=== PATIENT | male | born 1960 | race Caucasian/White ===

== ENCOUNTER 2022-10-15 12:41 | Outpatient (CLI) | payer SELFPAY | END 2022-10-15 12:42 | disposition home or self-care (01) | PROVIDERS: PCP Family Medicine; Visit Provider Family Medicine | DX: Z00.00 Encounter for general adult medical examination without abnormal findings (principal); E11.9 Type 2 diabetes mellitus without complications; E78.5 Hyperlipidemia, unspecified | CPT/HCPCS: 80048; 80061; 84460 ==

== ENCOUNTER 2023-08-01 13:04 | Emergency (ER) | payer OTHER, SELFPAY ==
[2023-08-01] VITALS (15 sets, daily range): BP systolic 139–160; BP diastolic 79–90; PULSE 92–105; RESP 18; TEMP 36.3; O2SAT 92–96; BMI 31.2
--- NOTE | 2023-08-01 13:48 | CT_ITS ---
Final Report Patient: ALLI MONTIEL Facility:?[facility] Patient ID:?[id number] Site Patient ID:?[id number]. Site :?[id number] Study:?CT Head W/O-08/01/2023 2:16:55 PM Ordering Physician:CHARLES Final Report: INDICATION: Fall TECHNIQUE: CT head without contrast. COMPARISON: None. FINDINGS: CSF spaces: Within normal limits for age. Brain parenchyma and extra-axial spaces: The lynch-white differentiation is normal. No sign of mass, hemorrhage, or midline shift. No extra-axial fluid collection. Skull base and calvarium: The visualized paranasal sinuses and mastoid air cells demonstrate no acute or significant findings. The visualized orbits are grossly unremarkable. No skull fractures. IMPRESSION: Unremarkable noncontrast head CT. Dictated by Jeet Fournier MD @ 08/01/2023 2:27:21 PM Please note that all CT scans at this facility use dose modulation, iterative reconstruction, and/or weight-based dosing when appropriate to reduce radiation dose to as low as reasonably achievable. Dictated by: Jeet Fournier MD @ 08/01/2023 14:27:29 (Electronic Signature)
--- NOTE | 2023-08-01 13:49 | ED_ITS ---
HPI - General Adult General Chief complaint: Fall/Minor Trauma Stated complaint: Fell moments ago, weakness, headache Time Seen by Provider: 08/01/23 13:11 History of Present Illness HPI narrative: This 62-year-old male comes in reporting headache and frequent falls. He states that he did fall about 3 weeks ago and hit his head at that time. He did not have loss of consciousness. He fell again yesterday 4 times. You lives alone at home and was able to get up after each fall. He came in today for evaluation here and fell in the parking lot on the way here. He does report some pain in his ribs on the left side. Related Data Previous Rx's Medication Instructions Recorded citalopram 20 mg tablet 20 mg PO QDAY #90 tabs 10/15/22 atorvastatin 20 mg tablet 20 mg PO QDAY #30 tabs 10/16/22 insulin glargine 100 unit/mL (3 10 unit (0.1 mL) subcut QPM #15 mL 12/12/22 mL) subcutaneous pen (Lantus Solostar U-100 Insulin) pen needle, diabetic 30 gauge x #100 ea 12/12/22 5/16 (Pen Needle) glimepiride 4 mg tablet 4 mg PO BID #180 tabs 06/23/23 metformin 500 mg tablet,extended 1,000 mg (2 x 500 mg) PO BID #360 06/23/23 release 24hr (osmotic) tabs Allergies Allergy/AdvReac Type Severity Reaction Status Date / Time bee venom protein (honey bee) Allergy Severe Anaphylaxis Verified 08/01/23 13:17 codeine Allergy Severe Anaphylaxis Verified 08/01/23 13:17 Penicillins Allergy Severe Anaphylaxis Verified 08/01/23 13:17 piroxicam AdvReac Unknown Muscle Pain Verified 08/01/23 13:17 Review of Systems Status of ROS: Reports: 10 or more systems reviewed and unremarkable except as noted in History and below Narrative: Constitutional: No fevers, no weight gain or loss. Eyes: No discharge. No vision changes. HENT: No congestion, no sore throat, no ear pain. Cardiovascular: No chest pain, no palpitations. Respiratory: No shortness of breath, no wheezes, no cough. Gastrointestinal: No abdominal pain, no vomiting, no diarrhea. Genitourinary: No dysuria, no hematuria. Musculoskeletal: Normal range of motion. Skin: No rashes, no pruritis. Neurological: No sensory change, speech change. He does report some sense of movement or mild vertigo at times. Endo/Heme/Allergies: No bruising or bleeding. No polydipsia. Pysch: no suicidality, no anxiety, no insomnia. All other systems reviewed and are negative. [facility] Medical History (Updated 08/01/23 @ 16:13 by Denver Faust MD) Adhesive capsulitis of both shoulders ?M75.01 - Adhesive capsulitis of right shoulder (ICD-10) ?M75.02 - Adhesive capsulitis of left shoulder (ICD-10) Type 2 diabetes mellitus ?E11.9 - Type 2 diabetes mellitus without complications (ICD-10) Major depression, recurrent ?F33.9 - Major depressive disorder, recurrent, unspecified (ICD-10) History of vitamin D deficiency (05/2020) ?Z86.39 - Personal history of other endocrine, nutritional and metabolic disease (ICD-10) Cataracts, bilateral ?H26.9 - Unspecified cataract (ICD-10) Hyperlipidemia ?E78.5 - Hyperlipidemia, unspecified (ICD-10) Hx of medication noncompliance ?Z91.148 - Patient's other noncompliance with medication regimen for other reason (ICD-10) Umbilical hernia ?K42.9 - Umbilical hernia without obstruction or gangrene (ICD-10) Mild intermittent asthma ?J45.20 - Mild intermittent asthma, uncomplicated (ICD-10) Hoarding disorder ?F42.3 - Hoarding disorder (ICD-10) Eczema ?L30.9 - Dermatitis, unspecified (ICD-10) History of adenomatous polyp of colon ?Z86.010 - Personal history of colonic polyps (ICD-10) Surgical History (Updated 10/02/22 @ 14:43 by Emmy Avitia) History of tonsillectomy ?Z90.89 - Acquired absence of other organs (ICD-10) Family History (Updated 10/02/22 @ 14:44 by Emmy Avitia) Mother Depression Diabetes Uncle Alcohol dependence Father Coronary artery disease, Onset Age: 50 Brother Diabetes Social History (Updated 10/02/22 @ 14:46 by Emmy Avitia) Narrative: Single. No children. Unemployed. No EtOH. No illicit drugs. Smoking Status: Never smoker Little interest or pleasure in doing things: nearly every day Feeling down, depressed, or hopeless: not at all Exam Narrative: Exam Narrative: Constitutional: Well-developed, well-nourished, no acute distress. HEENT: Normocephalic, atraumatic. Neck: Normal range of motion. Nontender. Supple. Heart: Regular. No murmurs. Normal rate. Intact distal pulses. Lungs: Clear to auscultation. No chest discomfort. No wheezes, rhonchi, or rales. Abdomen: Normal bowel sounds. Nontender. No rebound tenderness. Genitalia: Deferred. Back: No midline tenderness. Normal range of motion. Extremities: Normal range of motion. No injury. Skin: Intact. No rash. Warm. No erythema or pallor. Neurologic: No altered sensation. No weakness. Alert and oriented. Tongue is midline. No facial asymmetry. Speech is normal. [id number] is normal. No pronator drift. 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 He is able to raise each leg from the bed to my hand. Psychiatric: No suicidality. No anxiety or depression. No insomnia. Nursing notes and vitals signs are reviewed. Const: Vital Signs, click to edit/add: Vital Signs - 24 hr 08/01/23 13:18 08/01/23 13:51 08/01/23 14:02 Temperature 97.3 F L Pulse Rate 97 Pulse Rate [Pulse Oximeter] 105 H Respiratory Rate 18 Blood Pressure Blood Pressure [Ri ght Upper Arm] 154/90 H Pulse Oximetry 96 92 95 Oxygen Delivery Me thod Room Air 08/01/23 14:07 08/01/23 14:15 08/01/23 14:30 Temperature Pulse Rate 97 98 100 Pulse Rate [Pulse Oximeter] Respiratory Rate Blood Pressure Blood Pressure [Ri ght Upper Arm] Pulse Oximetry 95 94 95 Oxygen Delivery Me thod 08/01/23 14:31 08/01/23 14:45 08/01/23 15:00 Temperature Pulse Rate 98 102 H 96 Pulse Rate [Pulse Oximeter] Respiratory Rate Blood Pressure 160/89 H Blood Pressure [Ri ght Upper Arm] Pulse Oximetry 94 95 94 Oxygen Delivery Me thod 08/01/23 15:02 08/01/23 15:15 08/01/23 15:30 Temperature Pulse Rate 97 95 92 Pulse Rate [Pulse Oximeter] Respiratory Rate Blood Pressure 143/79 H Blood Pressure [Ri ght Upper Arm] Pulse Oximetry 94 94 95 Oxygen Delivery Me thod 08/01/23 15:31 08/01/23 15:32 08/01/23 15:45 Temperature Pulse Rate 93 92 98 Pulse Rate [Pulse Oximeter] Respiratory Rate Blood Pressure 139/84 Blood Pressure [Ri ght Upper Arm] Pulse Oximetry 95 95 96 Oxygen Delivery Me thod Course Vital Signs Vital signs: Initial Vital Signs Temperature 97.3 F L 08/01/23 13:18 Temperature Source Temporal Artery Scan 08/01/23 13:18 Pulse Rate 105 H 08/01/23 13:18 Respiratory Rate 18 08/01/23 13:18 Blood Pressure 154/90 H 08/01/23 13:18 Blood Pressure Mean 111 H 08/01/23 13:18 Blood Pressure Position Semi-Fowlers 08/01/23 13:18 Pulse Oximetry 96 08/01/23 13:18 Oxygen Delivery Method Room Air 08/01/23 13:18 Vital Signs Temperature 97.3 F L 08/01/23 13:18 Pulse Rate 105 H 08/01/23 13:18 Respiratory Rate 18 08/01/23 13:18 Blood Pressure 154/90 H 08/01/23 13:18 Pulse Oximetry 96 08/01/23 13:18 Oxygen Delivery Method Room Air 08/01/23 13:18 Temperature 97.3 F L 08/01/23 13:18 Pulse Rate 98 08/01/23 15:45 Respiratory Rate 18 08/01/23 13:18 Blood Pressure 139/84 08/01/23 15:31 Pulse Oximetry 96 08/01/23 15:45 Oxygen Delivery Method Room Air 08/01/23 13:18 Medical Decision Making MDM Narrative Medical decision making narrative: This patient comes in noting several falls over the past couple days. His neurologic exam is completely normal. She is not showing any sign of unilateral weakness. A CT scan of the head is obtained and by my review shows no acute findings. Radiology over read is pending yet. MRI may be helpful but is not available on this weekend day. The patient will was able to get up to the bathroom and ambulated normally to and fro but he seemed to be a bit more clumsy when doing so. He is okay to be discharged home. I advised him to follow-up with his primary physician and neurology clinic. If symptoms are persistent he may benefit from a diagnostic results of an MRI. Lab Data Labs: Lab Results 08/01/23 Range/Units 13:55 WBC 6.04 (4.50-11.00) K/uL RBC 5.53 (4.30-5.90) m/uL Hgb 16.6 (13.5-17.5) gm/dL Hct 46.7 (37.0-53.0) % MCV 84 (80-100) fL MCH 30 (26-34) pg MCHC 36 (32-36) gm/dL RDW Coeff of Bassem 13.6 (11.5-15.5) % Plt Count 172 (140-440) K/uL Neut % (Auto) 53.6 (42.0-72.0) % Lymph % (Auto) 35.1 (20-44) % Metcalfe % (Auto) 5.5 (0.0-11.0) % Eos % (Auto) 4.8 (0.0-7.0) % Baso % (Auto) 0.7 (0.0-3.0) % Neut # (Auto) 3.24 (1.7-7.0) K/uL Lymph # (Auto) 2.12 (0.90-2.90) K/uL Metcalfe # (Auto) 0.30 (0.00-0.90) K/UL Eos # (Auto) 0.29 (0.00-0.50) K/uL Baso # (Auto) 0.04 (0.00-0.30) K/uL Abs Immat Gran (auto) 0.02 (0.00-0.30) K/uL Imm/Tot Granulo (auto) 0.3 % Sodium 135 (135-149) mmol/L Potassium 3.8 (3.6-5.1) mmol/L Chloride 100 (96-114) mmol/L Carbon Dioxide 21 (20-32) mmol/L Anion Gap 14 (7-15) mEq/L BUN 16 (7-30) mg/dL Creatinine 0.8 (0.5-1.5) mg/dL Estimated Creat Clear 81.91 Estimated GFR 99 ml/min Glucose 365 H* (60-115) mg/dL Calcium 9.9 (8.4-10.6) mg/dL ECG Data Attestation: I personally reviewed and interpreted this ECG as follows: Interpretation: Borderline tachycardia, rate 102 beats per minute. There are no specific ST or T-wave abnormalities. Discharge Plan Discharge Clinical Impression: Ataxia Patient Disposition: Home, Self-Care Condition: Unchanged Additional Instructions: Use walker for ambulating. Follow-up with primary physician and Neurology Clinic. Return if symptoms are recurrent or worsening. Prescriptions: No Action citalopram 20 mg tablet 20 mg PO QDAY Qty: 90 3RF (DME) pen needle, diabetic [Pen Needle] 30 gauge x 5/16 needle See Rx Instructions .ROUTE .MEDSUPPLY Qty: 100 3RF Rx Instructions: Injects daily insulin glargine [Lantus Solostar U-100 Insulin] 100 unit/mL (3 mL) insulin pen 10 unit subcut QPM Qty: 15 1RF atorvastatin 20 mg tablet 20 mg PO QDAY Qty: 30 3RF metformin 500 mg tablet extended release 24 hr 1,000 mg PO BID Qty: 360 0RF glimepiride 4 mg tablet 4 mg PO BID Qty: 180 0RF Follow Up/Referrals: Viraj Garza MD [Primary Care Provider] - Stand Alone Forms: [employer] Info Instructions
[2023-08-01 14:03] LABS: Basophils Absolute Auto 0.04 K/uL (0.00-0.30); Basophils Percent Auto 0.7 % (0.0-3.0); Eosinophils Absolute Auto 0.29 K/uL (0.00-0.50); Eosinophils Percent Auto 4.8 % (0.0-7.0); Hematocrit 46.7 % (37.0-53.0); Hemoglobin* 16.6 gm/dL (13.5-17.5); Immature Granulocytes Abs Auto 0.02 K/uL (0.00-0.30); Immature Granulocytes Pct Auto 0.3 %; Lymphocytes Absolute Auto 2.12 K/uL (0.90-2.90); Lymphocytes Percent Auto 35.1 % (20-44); Mean Corpuscular HGB Conc 36 gm/dL (32-36); Mean Corpuscular Hemoglobin 30 pg (26-34); Mean Corpuscular Volume 84 fL (80-100); Monocytes Percent Auto 5.5 % (0.0-11.0); Neutrophils Absolute Auto 3.24 K/uL (1.7-7.0); Neutrophils Percent Auto 53.6 % (42.0-72.0); Platelet Count* 172 K/uL (140-440); RDW Coefficient of Variation % 13.6 % (11.5-15.5); Red Blood Count 5.53 m/uL (4.30-5.90); White Blood Count* 6.04 K/uL (4.50-11.00)
[2023-08-01 14:10] LABS: Slide Review Reflex No
[2023-08-01 14:17] LABS: Chloride* 100 mmol/L (96-114); Potassium* 3.8 mmol/L (3.6-5.1); Sodium* 135 mmol/L (135-149)
[2023-08-01 14:20] LABS: Anion Gap 14 mEq/L (7-15); Blood Urea Nitrogen* 16 mg/dL (7-30); Carbon Dioxide* 21 mmol/L (20-32); Creatinine* 0.8 mg/dL (0.5-1.5); Est. Creatinine Clearance* 81.91; Estimated Glomerular Filt Rate 99 ml/min
[2023-08-01 14:21] LABS: Calcium* 9.9 mg/dL (8.4-10.6)
[2023-08-01 14:22] LABS: Glucose* 365 mg/dL (60-115)
--- NOTE | 2023-08-01 16:01 | ED.NURSE ---
Patient road test to the bathroom, slight stumble upon while standing x2, able to catch himself. Able to walk a straight line. Patient states he lives alone and was thinking about trying to get into as assisted living because of these ongoing balance symptoms.
--- NOTE | 2023-08-01 16:21 | ED.NURSE ---
Walker prescription sent with patient. Reviewed safety measures at home such as keeping phone on him, etc.
== END 2023-08-01 16:33 | disposition home or self-care (01) ==
PROVIDERS: Emergency Provider Emergency Medicine Emergency Medical Services; PCP Family Medicine
DX: R27.0 Ataxia, unspecified (principal)
CPT/HCPCS: 36415; 70450; 80048; 85025; 93005; 94761; 99284; 99285

== ENCOUNTER 2023-09-25 16:50 | Outpatient (CLI) | payer MEDICARE, SELFPAY | END 2023-09-25 16:51 | disposition home or self-care (01) | LOC: NFLDREF 16:51 | PROVIDERS: PCP Family Medicine; Visit Provider Family Medicine | DX: E78.5 Hyperlipidemia, unspecified (principal); I10 Essential (primary) hypertension; E11.9 Type 2 diabetes mellitus without complications; Z79.84 Long term (current) use of oral hypoglycemic drugs; Z79.4 Long term (current) use of insulin | CPT/HCPCS: 80061 ==

== ENCOUNTER 2023-10-08 17:43 | Emergency (ER) | payer MEDICARE, SELFPAY ==
[2023-10-08 17:48] VITALS: BP 143/89; PULSE 89; RESP 16; TEMP 37.1; O2SAT 94; BMI 28.2
--- NOTE | 2023-10-08 18:02 | XR_ITS ---
Patient: MARK MONTIEL Facility:?[facility] Patient ID:?[id number] Site Patient ID:?[id number] Site :?[id number] Study:?XRay-Chest 2 VIEW-10/08/2023 6:18:45 PM Ordering Physician:?DR. SLATER Final Report: INDICATION: Near-syncope. TECHNIQUE: Chest 2 views. COMPARISON: None. FINDINGS: Cardiovascular and mediastinum: Heart size and vasculature are normal in caliber and appearance. Lungs and pleural spaces: Lungs are clear. No sign of infiltrate or mass. No sign of pleural effusion. No pneumothorax. Bones and soft tissues: Unremarkable for age. IMPRESSION: No evidence of an acute pulmonary process. Dictated by Omari Guadarrama MD @ 10/08/2023 7:26:33 PM Signed by:?Omari Guadarrama MD @10/08/2023 7:26:33 PM (Electronic Signature)
--- NOTE | 2023-10-08 18:02 | ED.GENADULT ---
HPI - General Adult General Date Seen: 10/08/23 Chief complaint: Syncope/Fainted Stated complaint: Syncopal Time Seen by Provider: 10/08/23 17:55 History of Present Illness HPI narrative: Pleasant 62-year-old gentleman with a history of [id number] diabetes, recent diagnosis of hypertension, presenting to the ER today by EMS after a near syncopal spell that led him to fall and scrape up his left lower quadrant of his abdomen. Patient reports that he does have history diabetes. He is working good his blood sugars down. He is currently on Lantus 20 units twice daily, metformin, glimepiride. Hemoglobin A1c in clinic 2 weeks ago was 11.2. He does not have any history of diabetic neuropathy, retinopathy, nephropathy. He follows with primary care provider. He also has a history of mixed hyperlipidemia, depression, vitamin-D deficiency, umbilical hernia, mild intermittent asthma, He notes that he has been having episodes of unsteadiness and dizziness she for the past few months. He recalls approximately 2 months ago he had a day where he had 4 episodes where he lost his balance during walking and exertion. The following day he had another episode where he was dizzy and lost his balance and felt so came to the ER for evaluation. He had workup in the ER that day and apparently was negative. After that he had a follow-up appoint with his primary care provider. In the office he had a blood pressure elevated about 190/90 and then 150/90. He was started on metoprolol (for the 1st time at that point) in the clinic about a month ago. He has been taking it. He notes that he still has episodes of dizziness and unsteadiness sometimes when he walks. Overall feeling better. Today he wanted to put his walking to the test so he when out walking on a trail. He brought a walking stick along with him. While he was walking for a while, on flat ground, he abruptly became dizzy and fell sideways. He was really having vertigo. He did not feel any chest pain, shortness of breath, palpitations. He just fell sideways. He was not unconscious while he fell and he recalls being awake and actually seeing himself falling into some sticks. He suffered some superficial scrapes to his left ulnar forearm and left lower quadrant of his abdomen. He tore short. He has or just scrapes and no deep lacerations. He is not having any other pain in these areas. He did not hit his head or injure his neck. He does not have a headache. Review of medical record: 08/01-was in the ER with report of headache frequent falls. He had fallen 4 times on the day prior to his ER visit. Head CT was negative. CBC showed a WBC 6.0, hemoglobin 16.6, platelet 172 BMP showed sodium 135, potassium 3.8, chloride 100, bicarb 21, BUN 16, creatinine 0.8, glucose 365. Anion gap was 14. EKG showed sinus rhythm with a rate of 102. He had a follow-up with PCP, Dr. Duque on 09/24 Related Data Previous Rx's Medication Instructions Recorded pen needle, diabetic 30 gauge x #100 ea 12/12/2210/28 (Pen Needle) atorvastatin 20 mg tablet 20 mg PO QDAY #90 tabs 09/25/23 citalopram 20 mg tablet 20 mg PO QDAY #90 tabs 09/25/23 glimepiride 4 mg tablet 4 mg PO BID #180 tabs 09/25/23 insulin glargine 100 unit/mL (3 30 unit (0.3 mL) subcut QPM #15 mL 09/25/23 mL) subcutaneous pen (Lantus Solostar U-100 Insulin) metoprolol succinate 50 mg 50 mg PO QDAY #90 tabs 09/25/23 tablet,extended release 24 hr (Toprol XL) metformin 500 mg tablet,extended 1,000 mg (2 x 500 mg) PO BID #360 09/29/23 release 24 hr tabs Allergies Allergy/AdvReac Type Severity Reaction Status Date / Time bee venom protein (honey bee) Allergy Severe Anaphylaxis Verified 10/08/23 17:48 codeine Allergy Severe Anaphylaxis Verified 10/08/23 17:48 Penicillins Allergy Severe Anaphylaxis Verified 10/08/23 17:48 piroxicam AdvReac Unknown Muscle Pain Verified 10/08/23 17:48 [facility] Medical History (Updated 10/08/23 @ 19:42 by Omari Napoles MD) Mixed hyperlipidemia ?E78.2 - Mixed hyperlipidemia (ICD-10) Primary hypertension ?I10 - Essential (primary) hypertension (ICD-10) Adhesive capsulitis of both shoulders ?M75.01 - Adhesive capsulitis of right shoulder (ICD-10) ?M75.02 - Adhesive capsulitis of left shoulder (ICD-10) Type 2 diabetes mellitus ?E11.9 - Type 2 diabetes mellitus without complications (ICD-10) Major depression, recurrent ?F33.9 - Major depressive disorder, recurrent, unspecified (ICD-10) History of vitamin D deficiency (05/2020) ?Z86.39 - Personal history of other endocrine, nutritional and metabolic disease (ICD-10) Cataracts, bilateral ?H26.9 - Unspecified cataract (ICD-10) Hx of medication noncompliance ?Z91.148 - Patient's other noncompliance with medication regimen for other reason (ICD-10) Umbilical hernia ?K42.9 - Umbilical hernia without obstruction or gangrene (ICD-10) Mild intermittent asthma ?J45.20 - Mild intermittent asthma, uncomplicated (ICD-10) Hoarding disorder ?F42.3 - Hoarding disorder (ICD-10) Eczema ?L30.9 - Dermatitis, unspecified (ICD-10) History of adenomatous polyp of colon ?Z86.010 - Personal history of colonic polyps (ICD-10) Surgical History (Updated 10/02/22 @ 14:43 by Emmy Avitia) History of tonsillectomy ?Z90.89 - Acquired absence of other organs (ICD-10) Family History (Updated 10/02/22 @ 14:44 by Emmy Avitia) Mother Depression Diabetes Uncle Alcohol dependence Father Coronary artery disease, Onset Age: 50 Brother Diabetes Social History (Updated 10/02/22 @ 14:46 by Emmy Avitia) Narrative: Single. No children. Unemployed. No EtOH. No illicit drugs. Smoking Status: Never smoker Do you use any of these nicotine containing products: None Second hand tobacco smoke exposure: No How often do you have a drink containing alcohol: never How often do you have six or more drinks on one occasion: Never AUDIT-C Alcohol total score: 0 Non-prescribed substance use: denies use Little interest or pleasure in doing things: several days Feeling down, depressed, or hopeless: several days service: No Exam Narrative: Exam Narrative: Constitutional: Appears well-developed and well-nourished. Alert. Conversant. Non toxic. HENT: Head: Atraumatic. No depressed skull fracture, Raccoon Eyes, Santiago's sign, or hemotympanum. Face normal. TMs normal Nose: Nose normal. Mouth/Throat: Oral mucosa is clear and moist. no trismus. Pharynx normal. Tonsils symmetric. No tonsillar enlargement, erythema, or exudate. Eyes: Conjunctivae normal. EOM normal. Pupils equal, round, and reactive to light. No scleral icterus. Neck: Normal range of motion. Neck supple. No tracheal deviation present. No tenderness. No midline step-off. Cardiovascular: Normal rate, regular rhythm. No gallop. No friction rub. With careful auscultation I wonder if there is a very soft systolic murmur heard. Symmetric radial and PT artery pulses . No JVD Pulmonary/Chest: Effort normal. No stridor. No respiratory distress. No wheezes. No rales. No rhonchi . No tenderness. Abdominal: Soft. Bowel sounds normal. No distension. No mass. No tenderness. No rebound. No guarding. Left lower quadrant abrasion. No CVA tenderness. Musculoskeletal: No T or L-spine tenderness. Pelvis stable. RUE: Normal range of motion. No tenderness. No deformity LUE: Normal range of motion. No tenderness. No deformity RLE: Normal range of motion. No edema. No tenderness. No deformity LLE: Normal range of motion. No edema. No tenderness. No deformity Neurological: Alert and oriented to person, place, and time. Normal strength. CN II-VII intact. No sensory deficit. GCS eye subscore is 4. GCS verbal subscore is 5. GCS motor subscore is 6. Normal coordination Skin: Very superficial abrasion on left ulnar forearm. No underlying bony tenderness. Skin is warm and dry. No rash noted. No pallor. Normal capillary refill. Psychiatric: Normal mood. Normal affect. Const: Vital Signs, click to edit/add: Vital Signs - 24 hr 10/08/23 17:48 10/08/23 19:34 Temperature 98.7 F Pulse Rate [Right Pulse Oximeter] 89 Pulse Rate [orthos tatic lying] 83 Pulse Rate [orthos tatic sitting] 90 Pulse Rate [orthos tatic standing] 95 Respiratory Rate 16 Blood Pressure [Ri ght Upper Arm] 143/89 H Blood Pressure [or thostatic lying] 130/83 Blood Pressure [or thostatic sitting] 130/82 Blood Pressure [or thostatic standing ] 122/99 H Pulse Oximetry 94 Oxygen Delivery Me thod Room Air Course Vital Signs Vital signs: Initial Vital Signs Temperature 98.7 F 10/08/23 17:48 Temperature Source Temporal Artery Scan 10/08/23 17:48 Pulse Rate 89 10/08/23 17:48 Pulse Rhythm Regular 10/08/23 17:48 Pulse Strength 3+ Normal 10/08/23 17:48 Respiratory Rate 16 10/08/23 17:48 Blood Pressure 143/89 H 10/08/23 17:48 Blood Pressure Mean 107 H 10/08/23 17:48 Blood Pressure Position Sitting 10/08/23 17:48 Pulse Oximetry 94 10/08/23 17:48 Oxygen Delivery Method Room Air 10/08/23 17:48 Vital Signs Temperature 98.7 F 10/08/23 17:48 Pulse Rate 89 10/08/23 17:48 Respiratory Rate 16 10/08/23 17:48 Blood Pressure 143/89 H 10/08/23 17:48 Pulse Oximetry 94 10/08/23 17:48 Oxygen Delivery Method Room Air 10/08/23 17:48 Temperature 98.7 F 10/08/23 17:48 Pulse Rate 83 10/08/23 19:34 Respiratory Rate 16 10/08/23 17:48 Blood Pressure 130/83 10/08/23 19:34 Pulse Oximetry 94 10/08/23 17:48 Oxygen Delivery Method Room Air 10/08/23 17:48 Medical Decision Making MDM Narrative Medical decision making narrative: This patient presents for evaluation of a an episode where he got dizzy lost his balance and fell. He did not lose consciousness but it sounds like he may have nearly blacked out. A broad differential was considered. History provided suggests a benign cause of syncope. The he may have a very quiet systolic murmur. Would recommend outpatient echocardiogram to evaluate for aortic stenosis or LV outflow tract obstruction. Since he has been having symptoms off and on for a few months, at this point I do not think it needs to be admitted for workup. Initial ECG shows normal sinus rhythm and no dysrhythmogenic abnormality such as WPW, prolonged QT, Brugada syndrome, and no ischemia. No symptoms/findings concerning for cardiac ischemia or ACS however we did do screening EKG and troponin which are both normal. No headache or other neurologic symptoms to suggest subarachnoid , stroke . I do see in his previous visit that they were thinking his falls were due to ataxia and possible stroke. However described history today does not really sound like ataxia, sounds like more like he had a near syncopal event. No reported seizure-like activity or postictal phase. rose grader while the patient here in the ER showed no dysrhythmia or ectopy. A broad differential diagnosis was considered including SVT, Atrial fibrillation, ventricular arrhythmia, thyroid disease, acute electrolyte abnormality, drugs/medications, medication side effect, anemia, heart disease, PE, among others. The workup and exam here in ED shows low risk for dangerous cause of the patient's syncope, and no risks factors to warrant admission. Clinical judgement suggests that supportive outpatient management is indicated. Recommend follow up with his PCP, Dr. Duque, within 1 week. Consider outpatient echo. Questions answered and return precautions given Lab Data Labs: Lab Results 10/08/23 Range/Units 18:22 WBC 8.32 (4.50-11.00) K/uL RBC 5.78 (4.30-5.90) m/uL Hgb 17.3 (13.5-17.5) gm/dL Hct 50.0 (37.0-53.0) % MCV 87 (80-100) fL MCH 30 (26-34) pg MCHC 35 (32-36) gm/dL RDW Coeff of Bassem 12.7 (11.5-15.5) % Plt Count 207 (140-440) K/uL Neut % (Auto) 75.8 H (42.0-72.0) % Lymph % (Auto) 14.9 L (20-44) % Throckmorton % (Auto) 5.6 (0.0-11.0) % Eos % (Auto) 3.0 (0.0-7.0) % Baso % (Auto) 0.5 (0.0-3.0) % Neut # (Auto) 6.30 (1.7-7.0) K/uL Lymph # (Auto) 1.20 (0.90-2.90) K/uL Throckmorton # (Auto) 0.50 (0.00-0.90) K/UL Eos # (Auto) 0.25 (0.00-0.50) K/uL Baso # (Auto) 0.04 (0.00-0.30) K/uL Abs Immat Gran (auto) 0.02 (0.00-0.30) K/uL Imm/Tot Granulo (auto) 0.2 % Sodium 138 (135-149) mmol/L Potassium 3.8 (3.6-5.1) mmol/L Chloride 104 (96-114) mmol/L Carbon Dioxide 28 (20-32) mmol/L Anion Gap 6 L (7-15) mEq/L BUN 18 (7-30) mg/dL Creatinine 0.8 (0.5-1.5) mg/dL Estimated Creat Clear 69.77 Estimated GFR 99 ml/min Glucose 209 H (60-115) mg/dL Calcium 9.3 (8.4-10.6) mg/dL Troponin I < 0.01 L (0.01-0.04) ng/mL NT-Pro-B Natriuret Pep 48 pg/mL Imaging Data Chest x-ray: Attestation: I have reviewed the pertinent imaging results. My impression: Normal cardiac silhouette. Normal mediastinum clear lung booth. Costophrenic angles are cut off on the AP view but no visible pleural effusion on the lateral view. No pneumothorax. No pulmonary edema. Radiologist's impression: IMPRESSION: No evidence of an acute pulmonary process. ECG Data Attestation: I personally reviewed and interpreted this ECG as follows: Interpretation: Normal sinus rhythm Rate: 88 [place]: 174. No delta waves. QRS axis: Normal axis. No pathologic Q-waves. ST segment/T wave: Nonspecific T-wave flattening throughout. No ST segment elevation or depression. QTc: 423 Discharge Plan Discharge Clinical Impression: Near syncope Patient Disposition: Home, Self-Care Condition: Stable Instructions: Near Syncope (ED) Additional Instructions: As we discussed, please come back to the ER right away if you have any more episodes of dizziness, falling, or if you develop any new or concerning symptoms-for instance, any chest pain, palpitations, episodes of shortness of breath, headache, blurred vision or double vision, or any stroke symptoms. Even if you continue to feel well, please recheck with your regular doctor, Dr. Duque, next week. Ask your doctor to order an echocardiogram to check on your heart valves. You may also need a brain MRI and further workup to find the cause of the spells. Prescriptions: No Action (DME) pen needle, diabetic [Pen Needle] 30 gauge x 5/16 needle See Rx Instructions .ROUTE .MEDSUPPLY Qty: 100 3RF Rx Instructions: Injects daily insulin glargine [Lantus Solostar U-100 Insulin] 100 unit/mL (3 mL) insulin pen 30 unit subcut QPM Qty: 15 1RF atorvastatin 20 mg tablet 20 mg PO QDAY Qty: 90 1RF citalopram 20 mg tablet 20 mg PO QDAY Qty: 90 3RF glimepiride 4 mg tablet 4 mg PO BID Qty: 180 3RF metoprolol succinate [Toprol XL] 50 mg tablet extended release 24 hr 50 mg PO QDAY Qty: 90 1RF metformin 500 mg tablet extended release 24 hr 1,000 mg PO BID Qty: 360 1RF Follow Up/Referrals: Shubham Duque MD [Primary Care Provider] - Stand Alone Forms: [facility] Info Instructions
[2023-10-08 18:36] LABS: Basophils Absolute Auto 0.04 K/uL (0.00-0.30); Basophils Percent Auto 0.5 % (0.0-3.0); Eosinophils Absolute Auto 0.25 K/uL (0.00-0.50); Hemoglobin* 17.3 gm/dL (13.5-17.5); Immature Granulocytes Abs Auto 0.02 K/uL (0.00-0.30); Immature Granulocytes Pct Auto 0.2 %; Lymphocytes Percent Auto 14.9 % (20-44); Mean Corpuscular HGB Conc 35 gm/dL (32-36); Mean Corpuscular Hemoglobin 30 pg (26-34); Mean Corpuscular Volume 87 fL (80-100); Monocytes Percent Auto 5.6 % (0.0-11.0); Neutrophils Percent Auto 75.8 % (42.0-72.0); Platelet Count* 207 K/uL (140-440); RDW Coefficient of Variation % 12.7 % (11.5-15.5); Red Blood Count 5.78 m/uL (4.30-5.90); White Blood Count* 8.32 K/uL (4.50-11.00)
[2023-10-08 18:39] LABS: Slide Review Reflex No
[2023-10-08 18:50] LABS: Chloride* 104 mmol/L (96-114); Potassium* 3.8 mmol/L (3.6-5.1); Sodium* 138 mmol/L (135-149)
[2023-10-08 18:53] LABS: Anion Gap 6 mEq/L (7-15); Blood Urea Nitrogen* 18 mg/dL (7-30); Carbon Dioxide* 28 mmol/L (20-32); Creatinine* 0.8 mg/dL (0.5-1.5); Est. Creatinine Clearance* 69.77; Estimated Glomerular Filt Rate 99 ml/min; Glucose* 209 mg/dL (60-115)
[2023-10-08 18:54] LABS: Calcium* 9.3 mg/dL (8.4-10.6)
[2023-10-08 19:09] LABS: Troponin I* < 0.01 ng/mL (0.01-0.04)
[2023-10-08 19:10] LABS: NT Pro B Type NatriureticPept* 48 pg/mL
[2023-10-08 19:34] VITALS: BP 122/99; BP 130/82; BP 130/83; PULSE 83; PULSE 90; PULSE 95
== END 2023-10-08 19:48 | disposition home or self-care (01) ==
PROVIDERS: Emergency Provider Emergency Medicine; PCP Family Medicine
DX: R55 Syncope and collapse (principal)
CPT/HCPCS: 36415; 71046; 80048; 83880; 84484; 85025; 93005; 99284

== ENCOUNTER 2024-02-16 08:59 | Outpatient (CLI) | payer MEDICARE, SELFPAY ==
--- OUTSIDE RECORDS SUMMARY | 2024-02-18 08:49 | XMS_ITS | Clinical Summary ---
Author Organization [facility] Address [place], [place] [address] Care Team Providers Care Commercial Sales Manager Name Role Phone Pcp, No Primary Care Provider Unavailabl e Allergies Active Allergy Reactions Criticality Noted Date Comments Hymenoptera Allergenic Extract Codeine Throat Swelling/Closing Piroxicam Myalgia Penicillins Rash Medications Medication Sig Dispensed Refills Start Date End Date Status cholecalciferol (VITAMIN D) 1,000 unit tablet Take 1 tablet by mouth once daily. 0 12/26/2015 Active cetirizine (ZYRTEC) 10 mg tabletIndications: Allergy, subsequent encounter Take 1 tablet by mouth once daily. 0 03/11/2017 Active triamcinolone (ARISTOCORT; KENALOG) 0.1 % creamIndications:E czema of both hands Apply topically to affected area(s) 3 times daily. 45 g 2 05/27/2019 Active EPINEPHrine (EPIPEN) 0.3 mg/0.3 mL injectionIndicatio ns:Allergy, subsequent encounter Inject 0.3 mg intramuscular one time if needed for Allergic Reaction. 2 Each 1 05/27/2019 Active blood-glucose meterIndications:T ype 2 diabetes mellitus without complication, without long-term current use of insulin (HC) Inject subcutaneous. Dispense meter, test strips, lancets covered by pt ins. E11.9 NIDDM type II - Test 2 times/day. Reason: High A1C 1 Device 06/07/2020 Active lancetsIndications :Type 2 diabetes mellitus without complication, without long-term current use of insulin (HC) Test two times per day. 200 Each 3 06/07/2020 Active albuterol HFA (PRO-AIR; VENTOLIN; PROVENTIL) 90 mcg/actuation inhalerIndications :Allergy, subsequent encounter Inhale 2 Puffs by mouth 4 times daily if needed. 1 Each 1 06/07/2020 Active atorvastatin (LIPITOR) 40 mg tabletIndications: Type 2 diabetes mellitus without complication, without long-term current use of insulin (HC) TAKE 1 TABLET BY MOUTH AT BEDTIME 90 Tablet 3 09/12/2021 Active citalopram (CELEXA) 20 mg tabletIndications: Adjustment disorder with depressed mood Take 1 Tablet (20 mg) by mouth every morning. 90 Tablet 3 09/12/2021 Active atorvastatin (LIPITOR) 40 mg tabletIndications: Type 2 diabetes mellitus without complication, without long-term current use of insulin (HC) Take 1 Tablet (40 mg) by mouth at bedtime. 90 Tablet 3 09/12/2021 Active blood sugar diagnostic (Blood Glucose Test) stripIndications:T ype 2 diabetes mellitus without complication, without long-term current use of insulin (HC) Test two times per day. 200 Each 3 09/12/2021 Active glipiZIDE (GLUCOTROL) 10 mg tabletIndications: Type 2 diabetes mellitus without complication, without long-term current use of insulin (HC) Take 1 Tablet (10 mg) by mouth once daily before a meal. 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 Type 2 diabetes mellitus wit hout complication, without long-term current use of insulin 05/15/2019 Adenomatous colon polyp 10/31/2014 Overview: Colonoscopy 10/2014 polyp repeat in 5 years Colonoscopy 11/2020 polyp, repeat in 7 years Overweight 10/20/2014 Allergy 10/05/2013 Hand eczema 10/05/2013 Anxiety and depression Resolved Problems Problem Noted Date Diagnosed Date Resolved Date Chronic insomnia 11/06/2021 11/06/2021 Vitamin D insufficiency 10/20/2014 03/3 06/2021 Low HDL (under 40) 10/20/2014 0 Adjustment disorder with depressed mood 04/05/2009 09/12/2021 Immunizations Name Administration Dates Next Due Hepatitis B (Adult) 06/07/2020 Influenza, IIV3 (Age 6-35 mos) 03/18/2016 Influenza, IIV3 (Age >=3 years) 04/26/2010 Influenza, IIV4 05/27/2019 Influenza, IIV4 (=>6mos) MDV 03/11/2017,05/28/20 15 Influenza,CCIIV4 PRESERV FREE 03/23/2020 Pneumococcal Poly,23-Valent (Pneumovax) 03/11/20 17 Td (Age >=7 Years) 08/25/2009 Tdap 10/05/2013 Zoster (Shingrix-RZV, recombinant) 06/07/2020, Family History Medical History Relation Name Comments Diabetes Brother Heart Disease Father late 50's Diabetes Mother Cancer-colon Neg. 1 Cancer-prostate Neg. 2 Relation Name Status Comments Brother Father Mother Neg. 1 Neg. 2 Social History Tobacco Use Types Packs/Day Years Used Date Smoking Tobacco: Never Smokeless Tobacco: Never Tobacco Cessation:Counseling Given: Yes Alcohol Use Standard Drinks/Week Comments Yes 0 (1 standard drink = 0.6 oz pur e alcohol) occasionally PHQ-2 Answer Date Recorded PHQ-2 TOTAL SCORE 3 11/06/2021 Social Connections Answer Date Recorded Frequency of Communication with Friends and Fami ly Not on file 06/08/2021 Financial Resource Strain Answer Date R ecorded Difficulty of Paying Living Expenses Not on file 06/08/2021 Difficulty of Paying Living Expenses Not on file 06/08/2021 Sex and Gender Information Value Date Recorded Sex Assigned at Not on file Gender Identity Not on file Sexual Orientation Not on file Obstetrics History Last Filed Vital Signs Vital Sign Reading Time Taken Comments Blood Pressure 122/83 10/15/2021 2:14 PM CDT tow er Pulse 101 10/15/2021 2:14 PM CDT Temperature 36.7 ??C (98 ??F) 03/11/2017 4:41 PM CDT Respiratory Rate 18 09/28/2012 1:32 PM CDT Oxygen Saturation 93% 10/15/2021 2:14 PM CDT Inhaled Oxygen Concentration - - Weight 98.4 kg (217 lb) 10/15/2021 2:14 PM CDT Height 184.6 cm (6' 0.68) 10/15/2021 2:14 PM CD T Body Mass Index 28.88 10/15/2021 2:14 PM CDT Plan of Treatment Health Maintenance Due Date Last Done Comments HIV for age 15-65 1973 BMI (ht and wt on same day) for age 18+ 10/15/2022 10/15/2021, 09/12/2021, 10/05/2020, Additional history exists Depression screening for age 12+ 11/05/2022 11/05/2021, 09/12/2021, 09/12/2021, Additional history exists Tetanus booster 10/06/2023 10/05/2013, 08/25/2009 Pneumococcal series for age 65+ (2 of 2 - PCV) 10/12/2023 03/11/2017 COVID-19 vaccine series ( season) 2024 07/05/2021, 01/09/2021, 12/03/2020 Influenza for age 65+ 02/14/2024 03/23/2020 , 05/27/2019, 03/11/2017, Additional history exists Lipids for age 45-75 09/12/2026 09/12/2021, 10/01/2020, 06/07/2020, Additional history exists Colonoscopy through age 75 11/15/202711/14, 11/14/2020, 10/27/2014 Tdap Completed 10/05/2013 Hepatitis C screening for ag e 18-79 Completed 03/11/2017 Zoster (shingles) series for age 50+ Completed 06/07/2020, 05/27/2019 Procedures Procedure Name Priority Date/Time Associated Diagnosis Comments LIPID PANEL W REFLEX MEASURED LDL Routine 09/12/2021 9:36 AM CDT Type 2 diabetes mellitus without complication, without long-term current use of insulin (HC) COLONOSCOPY 11/14/2020 7:32 AM CDT ANTI HCV Routine 03/11/2017 5:31 PM CDT Need for hepatitis C screening test from Last 3 Months or Most Recently Relevant to Health Maintenance Results * (ABNORMAL) LIPID PANEL W REFLEX MEASURED LDL (09/12/2021 9:36 AM CDT) CHOLESTEROL,TOTAL 267(H) 100 - 199 mg/dL 09/12/2021 5:24 PM CDT [facility] TRIGLYCERIDES 395(H) <150 mg/dL 09/12/2021 5:24 PM CDT [facility] HDL CHOLESTEROL 30(L) >40 mg/dL 5:24 PM CDT [facility] NON-HDL CHOLESTEROL 237(H) <145 mg/dl 09/12/2021 5:24 PM CDT [facility] CHOL/HDL RATIO 8.90(H) <4.50 09/12/2021 5:24 PM CDT [facility] LDL CHOLESTEROL 158(H) <=130 mg/dL 09/12/2021 5:24 PM CDT [facility] VLDL CHOLESTEROL 79(H) <=30 mg/dL 09/12/2021 5:24 PM CDT [facility] PROVIDER ORDERED STATUS RANDOM 09/12/2021 5:24 PM CDT [facility] Blood BLOOD SPECIMEN / Unknown Venipuncture / Unknown 09/12/2021 9:36 AM CDT 09/12/2021 9:43 AM CDT Viraj Garza MD CHEMISTRY [facility] [address] [place] [address], * COLONOSCOPY (11/14/2020 7:32 AM CDT) 11/14/2020 7:32 AM CDT Narrative Transcriptions Bruce Cary MD - 11/14/2020 9:03 AM CDT Patient Name: George Ku Procedure Date: 11/14/2020 Gender: Male Date of : 1960 Admit Type: Outpatient Procedure: Colonoscopy Proceduralist: Bruce Cary MD , Tri Stanford (Nurse) Indications/Pre-Op Diagnosis: Surveillance: Personal history ofadenomatous polyps on last colonoscopy > 5 years ago,Last colonoscopy: October 2014 Medications: Fentanyl 50 micrograms IV, Midazolam 2 mgIV, The level of sedation administered wasmoderate Procedure Description: The patient had risks, benefits and alternatives explained to andgave informed consent. The patient had a stable cardiopulmonary status and judged an adequate candidate for conscious sedation. The Colonoscope was passed through the anus and advanced to thececum, identified by appendiceal orifice and ileocecal valve. Thecolonoscopy was performed without difficulty. The patient tolerated the procedure well. The quality of the bowel preparation was good. The ileocecal valve, appendiceal orifice, and rectum were photographed. Complications: No immediate complications. Estimated Blood Loss & Specimen: Estimated blood loss: none. Specimen collected - Yes and sent to Laboratory Findings: The perianal and digital rectal examinations were normal. A 3 mm polyp was found in the ascending colon. The polyp was sessile. The polyp was removed with a cold biopsy forceps. Resection and retrieval were complete. The exam was otherwise without abnormality on direct and retroflexion views. Impressions/Post-Op Diagnosis: - One 3 mm polyp in the ascending colon, removed with a cold biopsy forceps. Resected and retrieved. - The examination was otherwise normal on direct and retroflexionviews. Recommendation: - Patient has a contact number available for emergencies. The signsand symptoms of potential delayed complications were discussed with the patient. Return to normal activities tomorrow. Written discharge instructions were provided to the patient. - Resume previous diet. - Continue present medications. - Await pathology results. - Repeat colonoscopy is recommended. The colonoscopy date will be determined after pathology results from today's exam become available for review. Moderate Sedation: Moderate (conscious) sedation was administered by the endoscopy nurse and supervised by the endoscopist. The following parameters were monitored: oxygen saturation, heart rate, respiratory rate, blood pressure, adequacy of pulmonary ventilation and reponse to care. Please refer to the patient's medical record flowsheets and nursing notes for moderate sedation details. Total physician intraservice time was 20 minutes. Bruce Cary MD 11/14/2020 9:03:28 AM This report has been signed electronically. Note Initiated On: 11/14/2020 7:32 AM Procedure Code(s): --- Professional --- 67713, Colonoscopy, flexible; with biopsy, single or multiple Diagnosis Code(s): --- Professional --- Z86.010, Personal history of colonicpolyps K63.5, Polyp of colon CPT copyright 2019 [employer]. All rights reserved. The codes documented in this report are preliminary and upon plating and point assembly supervisor reviewmay be revised to meet current compliance requirements. Scope In: 8:40:19 AM Scope Withdrawal Time 0 hours 12 minutes 47 seconds Scope Out: 8:58:46 AM Bruce Cary MD PROCEDURE ORD * ANTI HCV [19990.2] (03/11/2017 5:31 PM CDT) HEPATITIS C ANTIBODY Non-Reacti ve Non-Reacti ve 03/12/2017 3:46 PM CDT [facility] Blood BLOOD SPECIMEN / Unknown Venipuncture / Unknown 03/11/2017 5:31 PM CDT 03/11/2017 5:31 PM CDT Narrative [facility] - 03/12/2017 3:46 PM CDT Antibodies to HCV not detected; does not exclude the possibility of exposure to HCV. Viraj Garza MD [facility] [address] [place] [address], [place] from Last 3 Months or Most Recently Relevant to Health Maintenance Care Teams Commercial Sales Manager Relationship Specialty Start Date End Date Pcp, No . PCP - General 11/07/22
== END 2024-02-16 09:00 | disposition home or self-care (01) ==
LOC: NFLDREF 02-18 08:45
PROVIDERS: PCP Family Medicine; Referring Provider Family Medicine; Visit Provider Family Medicine
DX: E11.65 Type 2 diabetes mellitus with hyperglycemia (principal); E78.2 Mixed hyperlipidemia; I10 Essential (primary) hypertension; Z86.39 Personal history of other endocrine, nutritional and metabolic disease; Z12.5 Encounter for screening for malignant neoplasm of prostate; Z79.4 Long term (current) use of insulin; Z79.84 Long term (current) use of oral hypoglycemic drugs
CPT/HCPCS: 80053; 80061; 82043; 82306; 82570; G0103

== ENCOUNTER 2024-10-14 10:58 | Outpatient (CLI) | payer MEDICARE, SELFPAY | END 2024-10-14 10:59 | disposition home or self-care (01) | LOC: FBOREF 11:29 | PROVIDERS: PCP Family Medicine; Visit Provider Family Medicine | DX: R29.6 Repeated falls (principal); E11.65 Type 2 diabetes mellitus with hyperglycemia; Z13.21 Encounter for screening for nutritional disorder; Z79.4 Long term (current) use of insulin | CPT/HCPCS: 82607; 84207; 84443 ==